=== PATIENT | male | born 1980 | race Caucasian/White ===

== ENCOUNTER 2016-12-10 18:27 | Inpatient (IN) | payer OTHER ==
[~2016-12-10] VITALS: Ht 190.5 cm; Wt 74.8 kg
--- NOTE | ~2016-12-10 | DS ---
Unit #: [id number] #: [id number] Patient: LAYTON PHILLIPS [id number] [facility] [address] [place] [address] [id number] I MR#: [id number] NAME: LAYTON PHILLIPS ROOM: P183 Age: 36 Sex: M Admission Date: 12/10/2016 : 1980 Discharge Date: 12/13/2016 Attending Physician: Juan Sharma M.D. Primary Care Physician: No Primary Care Physician DISCHARGE SUMMARY REASON FOR ADMISSION Layton is a 36-year-old man with history of using amphetamines. He also reports use of benzos, but did not have any active detox symptoms at the time of presentation. He reported suicidal ideation and was admitted for stabilization. LABORATORY DATA Please see hospital chart. HOSPITAL COURSE Patient was admitted and placed on suicide precautions. Zyprexa 5 mg at bedtime was provided temporarily for substance use psychosis and was effective. He had no other detox symptomatology and denied any suicidal ideation, intent or plan. He did wish to be set up with outpatient care and was referred to [place], [place]. DISCHARGE DIAGNOSIS AXIS I: Amphetamine induced psychotic disorder, benzodiazepine abuse. AXIS II: No diagnosis. AXIS III: None acute. INSTRUCTIONS The patient will follow up with [facility] in [place], [place]. DISCHARGE MEDICATIONS Zyprexa 5 mg at bedtime for 7 days for substance induced psychosis. CONDITION ON DISCHARGE Improved. PROGNOSIS Fair to good. DIET AND ACTIVITY Ad ramona. Dictated by... Carmita PadillaH/gz TD: 01/08/2017 07:41 Unit #: [id number] #: [id number] Patient: LAYTON PHILLIPS JOB #: [id number] DISCHARGE SUMMARY Page 1 of 1 X Juan Sharma MD X DISCHARGE SUMMARY
--- NOTE | ~2016-12-10 | HP ---
Unit #: [id number] #: [id number] Patient: LAYTON PHILLIPS [id number] [place] [address] [id number] MR#: [id number] NAME: LAYTON PHILLIPS ROOM: P183 Age: 36 Sex: M Admission Date: 12/10/2016 : 1980 Attending Physician: Juan Sharma M.D. Admitting Physician: Juan Sharma M.D. Primary Care Physician: Primary Care Physician No HISTORY AND PHYSICAL HISTORY OF PRESENT ILLNESS Layton is a 36-year-old male admitted on 12/10/2016 for depression, suicidal ideation and detox from meth and benzos. PAST MEDICAL HISTORY None. PAST SURGICAL HISTORY None. ALLERGIES None. SOCIAL HISTORY Smokes 1 pack of cigarettes daily. Denies alcohol use. Does report frequent use of meth and marijuana. He is currently single and living with his mother. FAMILY HISTORY Noncontributory. REVIEW OF SYSTEMS CONSTITUTIONAL: No fever or chills. HEENT: Denies any sore throat, ear pain or runny nose. CARDIOVASCULAR: Denies chest pain, irregular heart rhythm or palpitations. CHEST: Denies shortness of breath or cough. No hemoptysis. GASTROINTESTINAL: Denies nausea, vomiting, diarrhea or chronic constipation. ENDOCRINE: Denies history of increased thirst or urination. No recent significant weight loss or gain. GENITOURINARY: Denies dysuria, frequency, or hematuria. SKIN: Denies any rashes. HEMATOLOGIC: Denies history of increased bleeding or bruising. MUSCULOSKELETAL: Denies any hot, swollen joints. No generalized muscle pain. NEUROLOGIC: Denies problems with vision or speech. No frequent, severe headaches. No numbness, tingling or weakness in any extremities. Denies loss of bladder or bowel control. CURRENT MEDICATIONS None. PHYSICAL EXAMINATION Unit #: [id number] #: [id number] Patient: LAYTON PHILLIPS GENERAL: Alert, oriented, in no acute distress. VITAL SIGNS: Blood pressure 107/68, heart rate 70, respirations 18, temperature 97.7. HEIGHT: 6 feet 3. WEIGHT: 165 pounds. SKIN: Warm and dry without rash or lesion. HEENT: Normocephalic. TMs not viewed. Oral and nasal passages clear. Conjunctivae clear. PERRLA. EOMs intact. NECK: Supple without lymphadenopathy or thyromegaly. HEART: Regular rate and rhythm without murmur. LUNGS: Clear. ABDOMEN: Soft, nontender, without masses or hepatosplenomegaly. : Not done. EXTREMITIES: No evidence of cyanosis, clubbing or edema. Moves all without focal deficit. NEUROLOGICAL: Grossly within normal limits. Cranial Nerves: II: Visual sapp are intact. III, IV AND : Extraocular movements are intact. Pupils are equal, round and reactive to light. V: Facial sensation is grossly normal. VII: Facial movements and expression are normal. VIII: Auditory acuity grossly intact. IX, X: Uvula is midline. Phonation is normal. XI: Patient shrugs shoulders and turns head normally. XII: Tongue protrudes in the midline. Sensory and Motor Function: Sensory and motor sensation is grossly normal. Motor: moves all extremities well. Coordination: Gait is normal. Deep Tendon Reflexes: Intact. IMPRESSION Psychiatric admission. RECOMMENDATIONS PSYCHIATRIC: Per psychiatrist. MEDICAL: No contraindication to participate in facility's activities. MEDICAL PROGNOSIS Good. MEDICAL CONDITION Stable. Dictated by... Rony Calderon/aishwarya TD: 12/11/2016 22:12 JOB #: [id number] Unit #: [id number] #: [id number] Patient: LAYTON PHILLIPS HISTORY AND PHYSICAL Page 1 of 1 X MONICA CABRERA APRN X HISTORY AND PHYSICAL
--- NOTE | ~2016-12-10 | PA ---
Unit #: [id number] #: [id number] Patient: LAYTON PHILLIPS [id number] [place] [address] [id number] I MR#: [id number] NAME: LAYTON PHILLIPS ROOM: P183 Age: 36 Sex: M Admission Date: 12/10/2016 : 1980 Date of Assessment: Attending Physician: Juan Sharma M.D. Admitting Physician: Juan Sharma M.D. Primary Care Physician: No Primary Care Physician PSYCHIATRIC ASSESSMENT INFORMANT(S) Patient, reliable. OLOP reliable. CHIEF COMPLAINT Amphetamine use. HISTORY OF PRESENT ILLNESS Layton is a 36-year-old man with previous admissions to this facility for methamphetamine use. He reported that he felt helpless and had suicidal ideation in the past. He was admitted for stabilization and treatment. PAST PSYCHIATRIC HISTORY Layton was at this facility in February of last year for substance abuse with psychosis. FAMILY PSYCHIATRIC HISTORY The patient's biological parents are both alcoholics and drug users. SOCIAL HISTORY The patient denied a history of abuse. He is a single man with some attachment to a long-term girlfriend. He has multiple charges for drug possession and distribution and (1) in the past. He has recently been having trouble holding a job and he (2) . MEDICAL HISTORY No chronic medical problems. MEDICATION HISTORY None currently. ALLERGIES No known drug allergies. SUBSTANCE ABUSE HISTORY The patient has significant lifetime history of drug use, including Cannibis, cocaine and amphetamines. MENTAL STATUS EXAM The patient was in his usual stable manner, appearing his stated age. He was cooperative with the examination. Speech was spontaneous, easily understood. Musculoskeletal examination was calm. His mood was irritable with a congruent affect. He was alert and fully oriented. Memory and concentration were fair. Thought processes were goal directed with no Unit #: [id number] #: [id number] Patient: LAYTON PHILLIPS active psychosis. At this point he reported suicidal ideation, but contracted for safety in the hospital. Insight and judgment fair. Fund of knowledge and abstraction fair. ASSETS AND LIABILITIES The patient is youthful and presents voluntarily for treatment. Liabilities include chronic drug use, difficulty maintaining employment. ADMITTING DIAGNOSES AXIS I Benzodiazepine dependence, withdrawal, uncomplicated. History of amphetamine use. AXIS II Diagnosis deferred. AXIS III None acute. PSYCHIATRIC PLAN/TREATMENT GOALS Layton is admitted and placed back on temporary prescription of antipsychotic for what appeared to be a drug-induced psychosis. If he begins to demonstrate any other detox symptomatology we will initiate benzodiazepine protocol. DISCHARGE PLANNING He will follow up with [facility] in [place], [place]. ESTIMATED LENGTH OF STAY Five days. Dictated by... Juan Sharma M.D. H/mariana TD: 01/07/2017 13:11 JOB #: [id number] PSYCHIATRIC ASSESSMENT Page 1 of 1 X Juan Sharma MD X PSYCHIATRIC ASSESSMENT
[2016-12-11 09:47] LABS: BASOPHIL% 0.4 % (0-2.5); EOSINOPHIL# 0.3 X10e3 (0-0.7); EOSINOPHIL% 3.8 % (0.0-7.0); HEMATOCRIT 47.5 % (38.0-50.0); HEMOGLOBIN 15.6 gm/dL (13.0-16.0); LYMPHOCYTE# 2.5 X10e3 (1.0-3.5); LYMPHOCYTE% 31.1 % (17.0-45.0); MEAN CELL VOLUME 89.7 FL (83-96); MEAN CORPUSCULAR HEMOGLOBIN 29.4 PG (28-34); MEAN CORPUSCULAR HGB CONC 32.8 g/dL (30-36); MONOCYTE# 0.8 X10e3 (0-1.0); MONOCYTE% 10.3 % (3.0-12.0); NEUTROPHIL# 4.3 X10e3 (1.5-7.1); NEUTROPHIL% 54.4 % (40-75); PLATELET COUNT 199 X10e3 (140-420); RED CELL DISTRIBUTION WIDTH 13.9 % (11.0-15.5); WHITE BLOOD COUNT 7.9 X10e3 (4.0-10.5)
[2016-12-11 09:59] LABS: ALBUMIN SERUM 3.7 g/dL (3.5-5.0); BILIRUBIN,TOTAL 0.4 mg/dL (0.2-2.0); CALCIUM SERUM 8.8 mg/dL (8.4-10.2); CREATININE SERUM 0.9 mg/dL (0.6-1.4); GLOM FILT RATE Estimated 110.3 mL/min (>60); POTASSIUM 4.5 mmol/L (3.5-5.1); PROTEIN TOTAL SERUM 6.2 g/dL (6.0-8.3)
[2016-12-11 10:17] LABS: DIFF IND NO
[2016-12-12 09:56] LABS: AMPHETAMINE POS (NEG); BARBITURATES NEG (NEG); BENZODIAZEPINES NEG (NEG); COCAINE NEG (NEG); MARIJUANA POS (NEG); OPIATES NEG (NEG); TRICYCLIC ANTIDEPRESSANTS NEG (NEG); U METHADONE NEG (NEG)
== END 2016-12-13 13:10 | DRG 897 ==
LOC: P1E 21:04
PROVIDERS: Psychiatry & Neurology Psychiatry
PROC: HZ2ZZZZ Detoxification Services for Substance Abuse Treatment (ICD-10-PCS; principal; 2016-12-10)
DX: F13.230 Sedative, hypnotic or anxiolytic dependence with withdrawal, uncomplicated (principal); R45.851 Suicidal ideations; F32.9 Major depressive disorder, single episode, unspecified; F17.210 Nicotine dependence, cigarettes, uncomplicated; F15.24 Other stimulant dependence with stimulant-induced mood disorder
CPT/HCPCS: 80053; 80307; 85025